=== PATIENT | male | born 1940 | race Caucasian/White ===

== ENCOUNTER 2023-06-23 10:25 | Day surgery (SDC) | payer OTHER, MEDICARE ==
[2023-06-17 11:25] VITALS: BMI 25.0
[2023-06-23] MEDS ORDERED: MIDAZOLAM HCL 2 MG/2 ML SINGLE DOSE VIAL ONE (10:28)
[2023-06-23] MEDS ORDERED: TROPICAMIDE 1% OPHTH SOLN 15 ML BOTTLE ONE (10:48)
[2023-06-23] MEDS ORDERED: CYCLOPENTOLATE 2% OPHTH SOLN 2 ML BOTTLE ONE (10:48)
[2023-06-23] MEDS ORDERED: PHENYLEPHRINE 2.5% OPTHALMIC DROP 2ML BOTTLE ONE (10:49)
[2023-06-23] MEDS ORDERED: CIPROFLOXACIN 0.3% EYE DROPS 5 ML BOTTLE ONE (10:49)
[2023-06-23] MEDS: CYCLOPENTOLATE 2% OPHTH SOLN 2 ML BOTTLE OD ONE ×3 (11:00→11:10)
[2023-06-23] MEDS: PHENYLEPHRINE 2.5% OPHTH SOLN 15 ML BOTTLE OD ONE ×3 (11:00→11:10)
[2023-06-23] MEDS: CIPROFLOXACIN 0.3% EYE DROPS 5 ML BOTTLE OD ONE ×3 (11:00→11:10)
[2023-06-23] MEDS: TROPICAMIDE 1% OPHTH SOLN 15 ML BOTTLE OD ONE ×3 (11:00→11:10)
[2023-06-23] MEDS ORDERED: EPINEPHrine/PF 1 MG/1 ML (1:1,000) AMPULE ONE (11:02)
[2023-06-23] MEDS ORDERED: LIDOCAINE 1% P/F 10 MG/ML VIAL ONE (11:02)
[2023-06-23] MEDS ORDERED: TETRACAINE 0.5% OPHTH SOLN 2 ML BOTTLE ONE (11:02)
[2023-06-23] MEDS ORDERED: NEO/POLYMYX B SULF/DEXAMETH OPHTHALMIC 5ML BOTTLE ONE (11:02)
[2023-06-23] MEDS ORDERED: BSS (NA/CA/MG/K) BALANCED SALT SOLUTION OPHTH SOLN 15 ML BOTTLE ONE (11:02)
[2023-06-23] MEDS ORDERED: CARBACHOL 0.01% INTRA-OCULAR 1.5 ML VIAL ONE (11:02)
[2023-06-23 11:06] VITALS: RESP 16
[2023-06-23 13:58] VITALS: TEMP 97.6
[2023-06-23 14:10] VITALS: BP 133/73; PULSE 66
== END 2023-06-23 14:05 | disposition home or self-care (01) ==
LOC: FASU 10:25
PROVIDERS: ATTEND Ophthalmology
PROC: 08RJ3JZ Replacement of Right Lens with Synthetic Substitute, Percutaneous Approach (ICD-10-PCS; principal; 2023-06-23 12:47)
DX: H26.8 Other specified cataract (principal)
CPT/HCPCS: 66984; V2632; 82962